=== PATIENT | female | born 1930 | race Caucasian/White ===

== ENCOUNTER 2019-11-29 18:36 | Inpatient (IN) | payer MEDICARE, BC ==
[~2019-11-29] VITALS: Ht 170.2 cm; Wt 72.2 kg
[~2019-11-29 18:36] MED LIST: 5-HY50CA PO; ACET325T21 PO; ALPR0.254 PO; APIX5TAB PO; BIMA2.5D RIGHTEYE; BRIN8DRO RIGHTEYE; CALC200T3 PO; CEFD300C37 PO; CLON0.5T PO; CYCL-259 PO; DIPH28.33 EXT; DOXY100C15 PO; ESCI5TAB7 PO; FURO20TA3 PO; MAGN400T26 PO; METO25TA2 PO; METO50TA4 PO; NEOM28.32 EXT; NITR0.6T4 SL; ONDA4TAB7 PO; PANT20TA2 PO; PANT40TA3 PO; POLY17PO29 PO; POTA20LI2 PO; POTA20TA89 PO; SACC250C8 PO; SIMV20TA PO; TRAM50TA2 PO; VIT1CAPS42 PO; stool softner
--- NOTE | 2019-11-29 18:36 | NUR ---
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
--- NOTE | 2019-11-29 18:52 | NUR ---
report given to ashley
--- NOTE | 2019-11-29 19:01 | NUR ---
Report received from JIGNESH Xavier. This RN to assume care.
[2019-11-29] MEDS ORDERED: SODIUM CHLORIDE 0.9% 1,000 ML IV ONE (19:05)
[2019-11-29] MEDS ORDERED: SODIUM CHLORIDE FLUSH 10ML SYR IVF ONE (19:30)
[2019-11-29 19:35] LABS: BASOPHILS # (AUTO) 0.02 x10^3/uL (0-0.1); BASOPHILS % (AUTO) 0 % (0-1); EOSINOPHILS # (AUTO) 0.16 x10^3/uL (0-0.4); EOSINOPHILS % (AUTO) 3 % (1-7); LYMPHOCYTES # (AUTO) 0.73 x10^3/uL (1-3.4); LYMPHOCYTES % (AUTO) 13 % (22-44); MD NO; MEAN CORPUSCULAR HEMOGLOBIN 31.9 pg (27.0-34.8); MEAN CORPUSCULAR HGB CONC 33.3 g/dL (32.4-35.8); MEAN CORPUSCULAR VOLUME 95.9 fL (80-100); MEAN PLATELET VOLUME 9.6 fL (7.4-10.4); MONOCYTES # (AUTO) 0.75 x10^3/uL (0.2-0.8); MONOCYTES % (AUTO) 13 % (2-9); NEUTROPHILS # (AUTO) 4.13 x10^3/uL (1.8-6.8); NEUTROPHILS % (AUTO) 71 % (42-75); PLATELET COUNT 184 x10^3/uL (130-400); RED CELL DISTRIBUTION WIDTH 12.9 % (9.6-15.2)
[2019-11-29 19:40] LABS: ALANINE AMINOTRANSFERASE 17 U/L (12-78); ALBUMIN 3.8 g/dL (3.4-5.0); ANION GAP 8 mmol/L (5-15); CALCIUM 9.1 mg/dL (8.5-10.1); CHLORIDE 95 mmol/L (98-107); CREATININE 0.77 mg/dL (0.55-1.02)
[2019-11-29 19:42] LABS: ALKALINE PHOSPHATASE 84 U/L (45-117); BILIRUBIN,TOTAL 0.6 mg/dL (0.2-1.0); TOTAL PROTEIN 7.1 g/dL (6.4-8.2)
[2019-11-29 19:55] LABS: MICROSCOPIC AUTO
[2019-11-29 20:04] LABS: CULTURE INDICATED? YES
[2019-11-29] MEDS ORDERED: METHOCARBAMOL 500 MG TABLET ONE (21:10)
[2019-11-29] MEDS ORDERED: KETOROLAC 30 MG/1 ML ONE (21:10)
[2019-11-29] MEDS ORDERED: KETOROLAC 30 MG/1 ML IVPush ONE (21:30)
[2019-11-29] MEDS ORDERED: METHOCARBAMOL 1,000 MG in DEXTROSE 5% 100 ML IV ONE (21:30)
[2019-11-29 22:37] VITALS: BP 136/82
[2019-11-29] MEDS: HEPARIN MC SCH (23:00)
[2019-11-29] MEDS ORDERED: SIMETHICONE 125 MG CHEW TAB PO PRN (23:00)
[2019-11-29] MEDS ORDERED: HEPARIN 5,000 UNITS/ML, 1ML SQ SCH (23:00)
[2019-11-29] MEDS: APIXABAN MC SCH (23:00)
[2019-11-29] MEDS ORDERED: BISACODYL 10 MG SUPP PR PRN (23:00)
[2019-11-29] MEDS: APIXABAN 5 MG TABLET PO SCH (23:00)
[2019-11-29] MEDS: TEMPLATE NON-FORMULARY MED. (Bimatoprost (Lumigan) 1 DROP) RIGHTEYE SCH (23:00)
[2019-11-29] MEDS: SODIUM CHLORIDE 0.9% 1,000 ML IV SCH (23:29)
[2019-11-29] MEDS: METHOCARBAMOL 750 MG TABLET PO PRN (23:30)
[2019-11-29] MEDS: LIDODERM 5% PATCH TD SCH (23:30)
[2019-11-29] MEDS: MULTIVITAMIN 1 TABLET PO SCH (23:30)
[2019-11-29] MEDS: SIMVASTATIN 20 MG TABLET PO SCH (23:31)
[2019-11-29] MEDS: PANTOPROZOLE 40MG TABLET PO SCH (23:31)
[2019-11-29] MEDS: ACETAMINOPHEN 325 MG TABLET PO SCH (23:31)
[2019-11-29] MEDS: METOPROLOL SUCCINATE 25 MG TAB.ER.24H PO SCH (23:31)
[2019-11-30] MEDS: APIXABAN MC SCH ×2 (01:00)
[2019-11-30] MEDS: HEPARIN MC SCH ×2 (01:00)
[2019-11-30 01:22] VITALS: BP 153/93
[2019-11-30 05:58] LABS: ANION GAP 5 mmol/L (5-15); CALCIUM 8.4 mg/dL (8.5-10.1); CHLORIDE 98 mmol/L (98-107)
[2019-11-30 07:47] VITALS: BP 128/80
[2019-11-30] MEDS: POTASSIUM CHLORIDE 20 MEQ TAB.ER.PRT PO SCH (08:52)
[2019-11-30] MEDS: APIXABAN 5 MG TABLET PO SCH ×2 (08:52→20:34)
[2019-11-30] MEDS: ACETAMINOPHEN 325 MG TABLET PO SCH ×2 (08:52→20:34)
[2019-11-30] MEDS: MULTIVITAMIN 1 TABLET PO SCH ×2 (08:52→20:34)
[2019-11-30] MEDS: POLYETHYLENE GLYCOL 17 GM PACKET PO SCH (08:52)
[2019-11-30] MEDS: METHOCARBAMOL 750 MG TABLET PO PRN ×2 (08:52→22:24)
[2019-11-30] MEDS: PANTOPROZOLE 40MG TABLET PO SCH ×2 (08:53→20:34)
[2019-11-30] MEDS: METOPROLOL SUCCINATE 25 MG TAB.ER.24H PO SCH ×2 (08:53→22:23)
[2019-11-30] MEDS: SODIUM CHLORIDE 0.9% 1,000 ML IV SCH (13:41)
[2019-11-30] MEDS ORDERED: GADOTERATE 7.5 MMOL/15 ML SYR ONE (14:28)
[2019-11-30] MEDS: SIMETHICONE 125 MG CHEW TAB PO SCH ×3 (16:39→20:34)
[2019-11-30 20:16] VITALS: BP 132/81
[2019-11-30] MEDS: TEMPLATE NON-FORMULARY MED. (Bimatoprost (Lumigan) 1 DROP) RIGHTEYE SCH (20:34)
[2019-11-30] MEDS: SIMVASTATIN 20 MG TABLET PO SCH (20:34)
[2019-11-30] MEDS: LIDODERM 5% PATCH TD SCH (22:24)
[2019-12-01 01:57] VITALS: BP 130/78
[2019-12-01] MEDS: SODIUM CHLORIDE 0.9% 1,000 ML IV SCH ×2 (04:09→16:42)
[2019-12-01 06:18] LABS: ALBUMIN 2.9 g/dL (3.4-5.0); ANION GAP 6 mmol/L (5-15); CALCIUM 8.1 mg/dL (8.5-10.1); CHLORIDE 101 mmol/L (98-107)
[2019-12-01 06:21] LABS: ALANINE AMINOTRANSFERASE 11 U/L (12-78); ALKALINE PHOSPHATASE 71 U/L (45-117); BILIRUBIN,TOTAL 0.6 mg/dL (0.2-1.0); CREATININE 0.63 mg/dL (0.55-1.02); TOTAL PROTEIN 5.5 g/dL (6.4-8.2)
[2019-12-01 07:48] VITALS: BP 130/82
[2019-12-01] MEDS: POLYETHYLENE GLYCOL 17 GM PACKET PO SCH (07:52)
[2019-12-01] MEDS: PANTOPROZOLE 40MG TABLET PO SCH ×2 (07:53→21:02)
[2019-12-01] MEDS: METOPROLOL SUCCINATE 25 MG TAB.ER.24H PO SCH ×2 (07:53→22:56)
[2019-12-01] MEDS: SIMETHICONE 125 MG CHEW TAB PO SCH ×4 (07:53→21:02)
[2019-12-01] MEDS: POTASSIUM CHLORIDE 20 MEQ TAB.ER.PRT PO SCH (07:53)
[2019-12-01] MEDS: APIXABAN 5 MG TABLET PO SCH ×2 (07:53→21:02)
[2019-12-01] MEDS: ACETAMINOPHEN 325 MG TABLET PO SCH ×2 (07:53→21:02)
[2019-12-01] MEDS: MULTIVITAMIN 1 TABLET PO SCH ×2 (08:00→21:04)
[2019-12-01] MEDS: METHOCARBAMOL 750 MG TABLET PO PRN ×3 (08:06→22:56)
[2019-12-01 14:10] VITALS: BP 127/77
[2019-12-01 20:20] VITALS: BP 132/79
[2019-12-01] MEDS: SIMVASTATIN 20 MG TABLET PO SCH (21:02)
[2019-12-01] MEDS: TEMPLATE NON-FORMULARY MED. (Bimatoprost (Lumigan) 1 DROP) RIGHTEYE SCH (22:00)
[2019-12-01] MEDS: LIDODERM 5% PATCH TD SCH (22:56)
[2019-12-02 02:00] VITALS: BP 156/80
[2019-12-02] MEDS: SODIUM CHLORIDE 0.9% 1,000 ML IV SCH ×2 (05:57→23:46)
[2019-12-02] MEDS: METHOCARBAMOL 750 MG TABLET PO PRN ×3 (05:57→20:03)
[2019-12-02 06:19] LABS: ANION GAP 6 mmol/L (5-15); CALCIUM 8.1 mg/dL (8.5-10.1); CHLORIDE 101 mmol/L (98-107)
[2019-12-02 06:23] LABS: ALANINE AMINOTRANSFERASE 10 U/L (12-78); ALKALINE PHOSPHATASE 71 U/L (45-117); BILIRUBIN,TOTAL 0.7 mg/dL (0.2-1.0); CREATININE 0.63 mg/dL (0.55-1.02); TOTAL PROTEIN 5.7 g/dL (6.4-8.2)
[2019-12-02 07:40] VITALS: BP 153/84
[2019-12-02] MEDS: ACETAMINOPHEN 325 MG TABLET PO SCH ×2 (07:54→20:03)
[2019-12-02] MEDS: SIMETHICONE 125 MG CHEW TAB PO SCH ×4 (07:54→21:16)
[2019-12-02] MEDS: PANTOPROZOLE 40MG TABLET PO SCH ×2 (07:54→21:15)
[2019-12-02] MEDS: POLYETHYLENE GLYCOL 17 GM PACKET PO SCH (07:54)
[2019-12-02] MEDS: APIXABAN 5 MG TABLET PO SCH (07:55)
[2019-12-02] MEDS: MULTIVITAMIN 1 TABLET PO SCH ×2 (07:55→21:16)
[2019-12-02] MEDS: METOPROLOL SUCCINATE 25 MG TAB.ER.24H PO SCH ×2 (07:56→20:03)
[2019-12-02 15:53] VITALS: BP 171/83
[2019-12-02] MEDS: ONDANSETRON 4 MG TABLET PO PRN (18:12)
[2019-12-02 20:02] VITALS: BP 176/94
[2019-12-02] MEDS: TEMPLATE NON-FORMULARY MED. (Bimatoprost (Lumigan) 1 DROP) RIGHTEYE SCH (21:00)
[2019-12-02] MEDS: SIMVASTATIN 20 MG TABLET PO SCH (21:16)
[2019-12-03] VITALS (7 sets, daily range): BP systolic 132–175; BP diastolic 78–102
[2019-12-03 06:14] LABS: ALBUMIN 3.1 g/dL (3.4-5.0); ANION GAP 8 mmol/L (5-15); CALCIUM 8.4 mg/dL (8.5-10.1); CHLORIDE 99 mmol/L (98-107)
[2019-12-03 06:18] LABS: ALANINE AMINOTRANSFERASE 13 U/L (12-78); ALKALINE PHOSPHATASE 74 U/L (45-117); BILIRUBIN,TOTAL 0.7 mg/dL (0.2-1.0); TOTAL PROTEIN 5.8 g/dL (6.4-8.2)
[2019-12-03] MEDS: METOPROLOL SUCCINATE 25 MG TAB.ER.24H PO SCH ×2 (07:42→22:27)
[2019-12-03] MEDS: POLYETHYLENE GLYCOL 17 GM PACKET PO SCH (09:00)
[2019-12-03] MEDS: LIDODERM 5% PATCH TD SCH ×2 (09:18→22:29)
[2019-12-03] MEDS: MULTIVITAMIN 1 TABLET PO SCH ×2 (09:18→21:13)
[2019-12-03] MEDS: SIMETHICONE 125 MG CHEW TAB PO SCH ×4 (09:18→21:12)
[2019-12-03] MEDS: PANTOPROZOLE 40MG TABLET PO SCH ×2 (09:18→21:13)
[2019-12-03] MEDS: ACETAMINOPHEN 325 MG TABLET PO SCH ×2 (09:18→21:13)
[2019-12-03] MEDS: METHOCARBAMOL 750 MG TABLET PO PRN ×2 (11:31→21:13)
[2019-12-03] MEDS: SODIUM CHLORIDE 0.9% 1,000 ML IV SCH (13:49)
[2019-12-03] MEDS: ONDANSETRON 4 MG TABLET PO PRN (17:30)
[2019-12-03] MEDS: TEMPLATE NON-FORMULARY MED. (Bimatoprost (Lumigan) 1 DROP) RIGHTEYE SCH (21:00)
[2019-12-03] MEDS: SIMVASTATIN 20 MG TABLET PO SCH (21:13)
[2019-12-04 00:09] VITALS: BP 138/65
[2019-12-04] MEDS: SODIUM CHLORIDE 0.9% 1,000 ML IV SCH ×3 (03:16→18:14)
[2019-12-04] MEDS: METOPROLOL SUCCINATE 25 MG TAB.ER.24H PO SCH ×2 (07:29→20:31)
[2019-12-04] MEDS: SIMETHICONE 125 MG CHEW TAB PO SCH ×4 (08:00→20:33)
[2019-12-04 08:20] VITALS: BP 156/80
[2019-12-04 08:49] LABS: CLOSTRIDIUM DIFFICILE ANTIGEN NEGATIVE; CLOSTRIDIUM DIFFICILE TOXIN NEGATIVE (Negative)
[2019-12-04] MEDS: ACETAMINOPHEN 325 MG TABLET PO SCH ×2 (09:00→20:30)
[2019-12-04] MEDS: MULTIVITAMIN 1 TABLET PO SCH ×2 (09:00→20:32)
[2019-12-04] MEDS: PANTOPROZOLE 40MG TABLET PO SCH ×2 (09:00→20:31)
[2019-12-04] MEDS: POLYETHYLENE GLYCOL 17 GM PACKET PO SCH (09:00)
[2019-12-04] MEDS ORDERED: OXYcodone 5 MG/5 ML ORAL.SOL UDC PO PRN ×2 (12:00→14:00)
[2019-12-04] MEDS ORDERED: PROMETHAZINE 25 MG/ML, 1ML IV PRN ×2 (12:00→14:00)
[2019-12-04] MEDS ORDERED: hydrALAzine 20 MG/ML, 1ML IV PRN ×2 (12:00→14:00)
[2019-12-04] MEDS ORDERED: LABETALOL 5MG/ML, 20ML IV PRN ×2 (12:00→14:00)
[2019-12-04] MEDS ORDERED: FENTANYL PF 100 MCG/2ML IV PRN ×2 (12:00→14:00)
[2019-12-04] MEDS ORDERED: METOPROLOL 1 MG/ML, 5ML IV PRN (12:00)
[2019-12-04] MEDS ORDERED: MEPERIDINE/PF 25MG/ML,1ML IVPush PRN ×2 (12:00→14:00)
[2019-12-04] MEDS ORDERED: HYDROmorphone 2 MG/ML, 1ML IVPush PRN ×2 (12:00→14:00)
[2019-12-04] MEDS ORDERED: HALOPERIDOL 5 MG/ML IV PRN ×2 (12:00→14:00)
[2019-12-04] MEDS ORDERED: LIDOCAINE 1%, 20ML ONE (12:20)
[2019-12-04] MEDS ORDERED: FENTANYL PF 250 MCG/5ML ONE (12:37)
[2019-12-04] MEDS ORDERED: EPHEDRINE 50 MG/ML, 1ML ONE (13:12)
[2019-12-04] MEDS ORDERED: ESMOLOL 100 MG/10 ML ONE (13:41)
[2019-12-04] MEDS ORDERED: CEFAZOLIN 1,000 MG ONE (13:44)
[2019-12-04] MEDS ORDERED: PROPOFOL 10 MG/ML, 20ML ONE (13:44)
[2019-12-04] MEDS ORDERED: ONDANSETRON 2MG/ML, 2ML ONE (13:44)
[2019-12-04] MEDS ORDERED: GLYCOPYRROLATE 0.2MG/1ML, 5ML ONE (13:44)
[2019-12-04] MEDS ORDERED: NEOSTIGMINE 1 MG/ML, 10ML ONE (13:44)
[2019-12-04] MEDS ORDERED: DEXAMETHASONE 4 MG/ML, 1ML ONE (13:44)
[2019-12-04] MEDS ORDERED: ROCURONIUM 10MG/ML,5ML ONE (13:44)
[2019-12-04] MEDS ORDERED: SUCCINYLCHOLINE 20 MG/ML, 10ML ONE (13:44)
[2019-12-04 14:51] VITALS: BP 153/82
[2019-12-04 19:41] VITALS: BP 145/78
[2019-12-04] MEDS: SIMVASTATIN 20 MG TABLET PO SCH (20:30)
[2019-12-04] MEDS: TEMPLATE NON-FORMULARY MED. (Bimatoprost (Lumigan) 1 DROP) RIGHTEYE SCH (20:33)
[2019-12-04] MEDS: LIDODERM 5% PATCH TD SCH (21:57)
[2019-12-05 01:33] VITALS: BP 128/74
[2019-12-05] MEDS: METHOCARBAMOL 750 MG TABLET PO PRN (03:43)
[2019-12-05 06:58] VITALS: BP 129/77
[2019-12-05] MEDS: SODIUM CHLORIDE 0.9% 1,000 ML IV SCH ×2 (08:09→22:22)
[2019-12-05] MEDS: POLYETHYLENE GLYCOL 17 GM PACKET PO SCH (08:10)
[2019-12-05] MEDS: SIMETHICONE 125 MG CHEW TAB PO SCH ×4 (08:10→21:11)
[2019-12-05] MEDS: ACETAMINOPHEN 325 MG TABLET PO SCH ×2 (08:11→21:10)
[2019-12-05] MEDS: MULTIVITAMIN 1 TABLET PO SCH ×2 (08:11→21:10)
[2019-12-05] MEDS: PANTOPROZOLE 40MG TABLET PO SCH ×2 (08:11→21:10)
[2019-12-05] MEDS: METOPROLOL SUCCINATE 25 MG TAB.ER.24H PO SCH ×2 (08:11→21:11)
[2019-12-05] MEDS: APIXABAN 5 MG TABLET PO SCH ×2 (12:09→21:11)
[2019-12-05 12:11] VITALS: BP 119/71
[2019-12-05] MEDS: ONDANSETRON 4 MG TABLET PO PRN (17:38)
[2019-12-05 19:05] VITALS: BP 154/88
[2019-12-05 21:09] VITALS: BP 146/84
[2019-12-05] MEDS: SIMVASTATIN 20 MG TABLET PO SCH (21:11)
[2019-12-05] MEDS: TEMPLATE NON-FORMULARY MED. (Bimatoprost (Lumigan) 1 DROP) RIGHTEYE SCH (21:15)
[2019-12-05] MEDS: LIDODERM 5% PATCH TD SCH (22:23)
[2019-12-06 00:45] VITALS: BP 128/82
[2019-12-06 08:03] VITALS: BP 141/86
[2019-12-06] MEDS: APIXABAN 5 MG TABLET PO SCH (08:57)
[2019-12-06] MEDS: PANTOPROZOLE 40MG TABLET PO SCH (08:57)
[2019-12-06] MEDS: MULTIVITAMIN 1 TABLET PO SCH (08:57)
[2019-12-06] MEDS: ACETAMINOPHEN 325 MG TABLET PO SCH (08:58)
[2019-12-06] MEDS: METOPROLOL SUCCINATE 25 MG TAB.ER.24H PO SCH (08:58)
[2019-12-06 15:08] VITALS: BP 146/85
== END 2019-12-06 16:23 | DRG 516 ==
LOC: ED 20:59 → EDIP 21:12 → 3N 22:16
PROVIDERS: ADMIT Internal Medicine; ATTEND Internal Medicine
PROC: 0QU13JZ Supplement Sacrum with Synthetic Substitute, Percutaneous Approach (ICD-10-PCS; principal; 2019-12-04 12:30)
DX: M80.88XA Other osteoporosis with current pathological fracture, vertebra(e), initial encounter for fracture (principal); I48.20 Chronic atrial fibrillation, unspecified; E87.1 Hypo-osmolality and hyponatremia; D68.69 Other thrombophilia; I31.3 Pericardial effusion (noninflammatory); E78.5 Hyperlipidemia, unspecified; I07.1 Rheumatic tricuspid insufficiency; I11.0 Hypertensive heart disease with heart failure; I35.1 Nonrheumatic aortic (valve) insufficiency; I50.9 Heart failure, unspecified; K21.9 Gastro-esophageal reflux disease without esophagitis; K59.00 Constipation, unspecified; Z66 Do not resuscitate; Z85.118 Personal history of other malignant neoplasm of bronchus and lung; Z85.51 Personal history of malignant neoplasm of bladder; Z90.710 Acquired absence of both cervix and uterus; Z88.6 Allergy status to analgesic agent; Z88.2 Allergy status to sulfonamides; Z88.8 Allergy status to other drugs, medicaments and biological substances; Z79.899 Other long term (current) drug therapy
CPT/HCPCS: 0201T; 22514; 36415; 72158; 72195; 74177; 80048; 80053; 81001; 83605; 83690; 85025; 87086; 87324; 93306; 99285; G0378; J0690; J1100; J1885; J2405; J2704; J2710; J3010; Q0162; A9575; C1713; J0330; J2800; J7030